=== PATIENT | male | born 1990 | race Caucasian/White ===

== ENCOUNTER 2021-08-20 16:52 | Emergency (ER) | payer OTHER ==
[~2021-08-20] VITALS: Ht 182.9 cm; Wt 72.6 kg
[2021-08-20 18:08] LABS: URINE BLOOD NEGATIVE (Negative); URINE CLARITY CLEAR; URINE COLOR YELLOW; URINE GLUCOSE-RANDOM NEGATIVE (Negative); URINE KETONES 1+ (Negative); URINE LEUKOCYTES-REFLEX NEGATIVE (Negative); URINE NITRITE-REFLEX NEGATIVE (Negative); URINE PROTEIN NEGATIVE (Negative); URINE SPECIFIC GRAVITY >= 1.030 (1.005-1.030); URINE UROBILINOGEN 0.2 E.U./dl (0.2-1.0)
[2021-08-20 18:10] LABS: ICTOTEST (BILI CONFIRMATORY) Negative (Negative); URINE BILIRUBIN 1+ (Negative)
[2021-08-20 18:15] LABS: ABSOLUTE BASOPHILS 0.1 thou/uL (0.0-0.2); ABSOLUTE EOSINOPHILS 0.1 thou/uL (0.0-0.7); ABSOLUTE LYMPHOCYTES 1.5 thou/uL (0.8-5.3); ABSOLUTE MONOCYTES 0.4 thou/uL (0.0-1.2); ABSOLUTE NEUTROPHILS 8.4 thou/uL (1.6-8.1); BASOPHILS 0.7 %; HEMATOCRIT 43.5 % (42.0-52.0); HEMOGLOBIN 14.6 gm/dL (14.0-18.0); LYMPHOCYTES 14.6 %; MCH 29.2 pg (26.0-34.0); MCHC 33.7 g/dL (28.0-37.0); MCV 86.7 fL (80.0-100.0); MONOCYTES 4.1 %; MPV 8.6 fl. (7.2-11.1); NUCLEATED RBCS 0 /100WBC; PLATELET COUNT* 418 thou/uL (150-400); POLYS 79.6 %; RBC 5.02 mil/uL (4.50-6.00); RDW-CV 13.7 % (10.5-14.5); WBC 10.5 thou/uL (4.0-11.0)
[2021-08-20 18:24] LABS: CALCIUM 9.4 mg/dL (8.5-10.1); CREATININE 1.1 mg/dL (0.6-1.3)
[2021-08-20 18:28] LABS: ALBUMIN 3.9 g/dL (3.4-5.0); TOTAL PROTEIN 7.9 g/dL (6.4-8.2)
[2021-08-20] MEDS ORDERED: CARAFATE 1 GM TA1 G1 PO (19:24)
[2021-08-20] MEDS ORDERED: PROTONIX40 M2 PO (19:24)
[2021-08-20 19:48] VITALS: BP 112/68
== END 2021-08-20 19:48 | disposition home or self-care (01) ==
LOC: M.ERS 16:52
PROVIDERS: Family Medicine; Physician Assistant
DX: K29.80 Duodenitis without bleeding (principal); R10.32 Left lower quadrant pain; F17.210 Nicotine dependence, cigarettes, uncomplicated; Z88.0 Allergy status to penicillin